=== PATIENT | male | born 1950 | race African-American/Black ===

== ENCOUNTER 2020-01-31 14:48 | Inpatient (IN) | payer MEDICARE, MEDICAID ==
[~2020-01-31] VITALS: Ht 195.6 cm; Wt 79.8 kg
[2020-01-31 16:50] LABS: CHLORIDE 111 mEq/L (98-107)
[2020-01-31 16:59] LABS: INR 1.1; PROTHROMBIN TIME 11.4 sec (9.6-11.0)
[2020-01-31 17:00] LABS: BASOPHILS % 0.8 % (0.0-2.0); EOSINOPHILS % 2.3 % (0.0-5.0); HEMATOCRIT. 35.4 % (42.0-52.0); HEMOGLOBIN. 11.8 g/dL (14.0-18.0); LYMPHOCYTES % 17.9 % (20.0-50.0); MEAN CORPUSCULAR HEMOGLOBIN 29.7 pg (28.0-32.0); MEAN CORPUSCULAR VOLUME 89.3 fL (80.0-94.0); MEAN PLATELET VOLUME 6.9 fl (7.4-10.4); MONOCYTES % 12.8 % (2.0-8.0); NEUTROPHILS % 66.2 % (40.0-76.0); PLATELET 244 x1000/uL (130-400); RED BLOOD CELL COUNT 3.97 mill/uL (4.7-6.1); RED CELL DISTRIBUTION WIDTH 18.5 % (11.6-14.6)
[2020-01-31] MEDS ORDERED: IPRATROPIUM BROMIDE (0.02%) 0.5MG/2.5ML NEB HHN STA (18:25)
[2020-01-31] MEDS ORDERED: ALBUTEROL (0.083%) 2.5MG/3ML NEB HHN STA (18:25)
[2020-01-31] MEDS ORDERED: METHYLPREDNISOLONE SOD SUCC 125 MG/2 ML VIAL IV STA (18:25)
[2020-01-31 19:21] LABS: CLARITY URINE CLEAR (CLEAR); COLOR URINE YELLOW (YELLOW); KETONES URINE NEGATIVE (NEGATIVE); LEUKOCYTE ESTERASE URINE NEGATIVE (NEGATIVE); NITRITE URINE NEGATIVE (NEGATIVE); OCCULT BLOOD URINE NEGATIVE (NEGATIVE); PH URINE 6.5 (4.5-8.0); PROTEIN URINE NEGATIVE (NEGATIVE); SPECIFIC GRAVITY URINE 1.018 (1.005-1.030); UROBILINOGEN URINE 0.2 E.U./dL (0.2-1.0)
[2020-01-31] MEDS ORDERED: ONDANSETRON HCL 4MG/2ML INJ IV PRN (21:00)
[2020-01-31] MEDS ORDERED: ZOLPIDEM TARTRATE 5MG TABLET PO PRN (21:00)
[2020-01-31] MEDS ORDERED: IPRATROPIUM/ALBUTEROL 0.5-3(2.5)MG/3ML NEB HHN PRN (21:00)
[2020-01-31] MEDS ORDERED: HYDRALAZINE 20MG/ML VIAL IV PRN (21:00)
[2020-01-31] MEDS ORDERED: MAGNESIUM/ALUMINUM HYDROXIDE/SIMETHICONE 30ML UDC PO PRN (21:00)
[2020-01-31] MEDS ORDERED: CLONIDINE 0.1MG TABLET PO PRN (21:00)
[2020-01-31] MEDS ORDERED: GUAIFENESIN 200MG/10ML SUGAR FREE UDC PO PRN (21:00)
[2020-01-31] MEDS ORDERED: ACETAMINOPHEN 325MG TABLET PO PRN ×2 (21:00)
[2020-01-31] MEDS ORDERED: DIPHENHYDRAMINE 50MG/ML VIAL IV PRN (21:00)
[2020-01-31] MEDS ORDERED: MAGNESIUM HYDROXIDE 400MG/5ML 30ML UDC PO PRN (21:15)
[2020-01-31] MEDS ORDERED: HYDROCODONE/ACETAMINOPHEN 5/325MG TABLET PO PRN (21:15)
[2020-02-01] VITALS (16 sets, daily range): BP systolic 122–179; BP diastolic 72–94
[2020-02-01] MEDS: METHYLPREDNISOLONE SOD SUCC 40 MG/ML VIAL IV SCH ×2 (05:29→14:38)
[2020-02-01] MEDS: SODIUM CHLORIDE 0.9% INJ 3ML FLUSH IVF SCH ×3 (05:29→22:00)
[2020-02-01] MEDS: ENOXAPARIN 40MG/0.4ML SYR SUBCUT SCH (09:18)
[2020-02-01] MEDS: IPRATROPIUM/ALBUTEROL 0.5-3(2.5)MG/3ML NEB HHN SCH ×3 (09:20→22:20)
[2020-02-01] MEDS ORDERED: LOSA50TA41 PO (12:57)
[2020-02-01] MEDS ORDERED: ACET12.53 PO (12:57)
[2020-02-01] MEDS ORDERED: ASPI-1497 PO (12:57)
[2020-02-01] MEDS ORDERED: CHOL40002 PO (12:57)
[2020-02-01] MEDS: LOSARTAN POTASSIUM 50 MG TABLET PO SCH (18:24)
[2020-02-01] MEDS: PANTOT AC/MIN OIL/PET HY-PHL OINT (AQUAPHOR) TOP SCH (18:25)
[2020-02-02] VITALS (12 sets, daily range): BP systolic 118–152; BP diastolic 72–90
[2020-02-02] MEDS: SODIUM CHLORIDE 0.9% INJ 3ML FLUSH IVF SCH (05:58)
[2020-02-02] MEDS: ENOXAPARIN 40MG/0.4ML SYR SUBCUT SCH (09:00)
[2020-02-02] MEDS: LOSARTAN POTASSIUM 50 MG TABLET PO SCH (09:00)
[2020-02-02] MEDS ORDERED: CHOLECALCIFEROL (D3) 1000 UNIT TABLET PO SCH (09:00)
[2020-02-02] MEDS: PANTOT AC/MIN OIL/PET HY-PHL OINT (AQUAPHOR) TOP SCH (09:04)
[2020-02-02] MEDS: IPRATROPIUM/ALBUTEROL 0.5-3(2.5)MG/3ML NEB HHN SCH ×2 (09:11→16:08)
== END 2020-02-02 19:32 | disposition home or self-care (01) | DRG 140 ==
LOC: ER 14:48 → EDBEDREQTM 19:03 → EDBEDREQ 19:03 → 5EST 20:18 → EDBEDREQTM 20:25 → EDBEDREQ 20:25 → ENRESERV 22:28
PROVIDERS: ADMIT Internal Medicine; ATTEND Internal Medicine
DX: J44.1 Chronic obstructive pulmonary disease with (acute) exacerbation (principal); J96.90 Respiratory failure, unspecified, unspecified whether with hypoxia or hypercapnia; C61 Malignant neoplasm of prostate; J98.11 Atelectasis; I87.2 Venous insufficiency (chronic) (peripheral); L30.9 Dermatitis, unspecified; Z60.2 Problems related to living alone; I10 Essential (primary) hypertension; B19.20 Unspecified viral hepatitis C without hepatic coma; Z72.0 Tobacco use; Z85.46 Personal history of malignant neoplasm of prostate; Z79.899 Other long term (current) drug therapy
CPT/HCPCS: 36415; 71045; 73562; 80053; 81003; 83880; 84484; 85025; 93005; 93306; 93970; 97110; 97162; 99285; J1650; J2920; J2930

== ENCOUNTER 2020-04-22 18:55 | Emergency (ER) | payer MEDICARE, MEDICAID ==
[~2020-04-22] VITALS: Ht 195.6 cm; Wt 80.0 kg
[~2020-04-22 18:55] MED LIST: ACET12.53 PO; ASPI-1497 PO; CHOL40002 PO; LOSA50TA41 PO
[2020-04-22 19:11] VITALS: BP 111/64
[2020-04-23] MEDS ORDERED: CEFTRIAXONE SODIUM 1 G/VIAL IM ONE (02:00)
[2020-04-23] MEDS ORDERED: LIDOCAINE HCL 1% 20ML VIAL (Pyxis) INJ INFIL ONE (02:00)
== END 2020-04-23 02:39 | disposition home or self-care (01) ==
LOC: ER 18:55
DX: L03.116 Cellulitis of left lower limb (principal); J44.9 Chronic obstructive pulmonary disease, unspecified; Z98.890 Other specified postprocedural states; Z86.19 Personal history of other infectious and parasitic diseases; Z85.46 Personal history of malignant neoplasm of prostate
CPT/HCPCS: 93970; 96372; 99284; J0696; J3490

== ENCOUNTER 2020-05-12 19:57 | Inpatient (IN) | payer MEDICARE, MEDICAID ==
[~2020-05-12] VITALS: Ht 195.6 cm; Wt 75.4 kg
[2020-05-12 21:52] LABS: HEMATOCRIT. 31.6 % (42.0-52.0); HEMOGLOBIN. 10.5 g/dL (14.0-18.0); MEAN CORPUSCULAR HEMOGLOBIN 29.4 pg (28.0-32.0); MEAN CORPUSCULAR VOLUME 88.3 fL (80.0-94.0); MEAN PLATELET VOLUME 6.9 fl (7.4-10.4); PLATELET 313 x1000/uL (130-400); RED BLOOD CELL COUNT 3.58 mill/uL (4.7-6.1); RED CELL DISTRIBUTION WIDTH 18.5 % (11.6-14.6)
[2020-05-12 21:56] LABS: CHLORIDE 113 mEq/L (98-107)
[2020-05-12 21:58] LABS: INR 1.2; PROTHROMBIN TIME 12.2 sec (9.6-11.0)
[2020-05-12 22:12] LABS: PLATELET ESTIMATE NORMAL
[2020-05-12] MEDS ORDERED: ASPIRIN 81MG TABLET PO ONE (22:45)
[2020-05-12] MEDS ORDERED: ENOXAPARIN 80MG/0.8ML SYR SUBCUT ONE (23:00)
[2020-05-13] MEDS ORDERED: DOCUSATE SODIUM 100MG CAPSULE PO PRN (00:15)
[2020-05-13] MEDS ORDERED: ONDANSETRON HCL 4MG/2ML INJ IV PRN (00:15)
[2020-05-13] MEDS ORDERED: HYDRALAZINE 20MG/ML VIAL IV PRN (00:15)
[2020-05-13] MEDS ORDERED: IPRATROPIUM/ALBUTEROL 0.5-3(2.5)MG/3ML NEB HHN PRN (00:15)
[2020-05-13] MEDS ORDERED: LORAZEPAM 2MG/ML CPJ IV PRN (00:15)
[2020-05-13] MEDS ORDERED: DIPHENHYDRAMINE 50MG/ML VIAL IV PRN (00:15)
[2020-05-13] MEDS ORDERED: GUAIFENESIN 200MG/10ML SUGAR FREE UDC PO PRN (00:15)
[2020-05-13] MEDS ORDERED: MAGNESIUM/ALUMINUM HYDROXIDE/SIMETHICONE 30ML UDC PO PRN (00:15)
[2020-05-13] MEDS ORDERED: ACETAMINOPHEN 325MG TABLET PO PRN (00:15)
[2020-05-13] MEDS ORDERED: CLONIDINE 0.1MG TABLET PO PRN (00:15)
[2020-05-13 00:30] VITALS: BP 133/67
[2020-05-13] MEDS ORDERED: CEFTRIAXONE 1,000 MG in DEXTROSE 5% WATER 50 ML IV SCH (02:00)
[2020-05-13 02:09] LABS: CLARITY URINE CLEAR (CLEAR); COLOR URINE YELLOW (YELLOW); KETONES URINE NEGATIVE (NEGATIVE); LEUKOCYTE ESTERASE URINE 1+ (NEGATIVE); NITRITE URINE NEGATIVE (NEGATIVE); OCCULT BLOOD URINE NEGATIVE (NEGATIVE); PH URINE 8.5 (4.5-8.0); PROTEIN URINE 2+ (NEGATIVE); SPECIFIC GRAVITY URINE 1.018 (1.005-1.030)
[2020-05-13] MEDS ORDERED: AZITHROMYCIN 500 MG in DEXT 5% WATER 250 ML IV SCH (03:00)
[2020-05-13 04:00] VITALS: BP 126/63
[2020-05-13] MEDS: SODIUM CHLORIDE 0.9% INJ 3ML FLUSH IVF SCH ×3 (06:05→21:46)
[2020-05-13 08:00] VITALS: BP 130/66
[2020-05-13] MEDS: ASPIRIN 81MG TABLET PO SCH (08:28)
[2020-05-13] MEDS: ENOXAPARIN 40MG/0.4ML SYR SUBCUT SCH (08:29)
[2020-05-13] MEDS ORDERED: ASPIRIN 81MG EC TABLET PO SCH (09:00)
[2020-05-13 12:00] VITALS: BP 126/68
[2020-05-13] MEDS ORDERED: NON FORMULARY PATIENT HOME MED XX SCH (13:45)
[2020-05-13] MEDS ORDERED: ALBUTEROL 6.7GM HFA INHALER ORI SCH (14:00)
[2020-05-13 16:00] VITALS: BP 129/70
[2020-05-13 20:00] VITALS: BP 91/47
[2020-05-13] MEDS: GUAIFENESIN 600MG ER TABLET PO SCH (20:26)
[2020-05-13 20:35] LABS: CREATINE KINASE MB FRACTION 126.5 ng/mL (0.5-3.6); T4 FREE 0.93 ng/dL (0.76-1.46)
[2020-05-13] MEDS: HYDROCODONE/ACETAMINOPHEN 10/325MG TABLET PO PRN (21:49)
[2020-05-13 23:44] LABS: CREATINE KINASE MB FRACTION 128.8 ng/mL (0.5-3.6)
[2020-05-14] VITALS: BP 132/69
[2020-05-14] MEDS: CEFTRIAXONE 1,000 MG in DEXTROSE 5% WATER 50 ML IV SCH (00:55)
[2020-05-14] MEDS: AZITHROMYCIN 500 MG in DEXT 5% WATER 250 ML IV SCH (00:55)
[2020-05-14 04:00] VITALS: BP 110/68
[2020-05-14] MEDS: SODIUM CHLORIDE 0.9% INJ 3ML FLUSH IVF SCH ×3 (04:34→21:00)
[2020-05-14 07:03] LABS: CHLORIDE 114 mEq/L (98-107)
[2020-05-14 07:13] LABS: CREATINE KINASE MB FRACTION 97.7 ng/mL (0.5-3.6)
[2020-05-14 07:16] LABS: BASOPHILS % 0.6 % (0.0-2.0); HEMATOCRIT. 31.7 % (42.0-52.0); HEMOGLOBIN. 10.5 g/dL (14.0-18.0); LYMPHOCYTES % 8.7 % (20.0-50.0); MEAN CORPUSCULAR HEMOGLOBIN 29.1 pg (28.0-32.0); MEAN PLATELET VOLUME 7.1 fl (7.4-10.4); MONOCYTES % 6.9 % (2.0-8.0); NEUTROPHILS % 77.8 % (40.0-76.0); PLATELET 315 x1000/uL (130-400); RED CELL DISTRIBUTION WIDTH 19.3 % (11.6-14.6)
[2020-05-14 07:25] LABS: CREATINE KINASE 4500 IU/L (39-308)
[2020-05-14 08:00] VITALS: BP 118/62
[2020-05-14] MEDS: GUAIFENESIN 600MG ER TABLET PO SCH ×2 (09:49→20:55)
[2020-05-14] MEDS: ASPIRIN 81MG TABLET PO SCH (09:49)
[2020-05-14] MEDS: ENOXAPARIN 40MG/0.4ML SYR SUBCUT SCH (09:50)
[2020-05-14] MEDS: HYDROCODONE/ACETAMINOPHEN 10/325MG TABLET PO PRN ×3 (10:29→22:47)
[2020-05-14 12:00] VITALS: BP 107/57
[2020-05-14] MEDS: NYSTATIN POWDER 15GM TOP SCH ×2 (13:04→17:20)
[2020-05-14] MEDS: FLUTICASONE FUROATE 100 1 INH/CAP ORI SCH ×2 (13:04→17:20)
[2020-05-14 16:00] VITALS: BP 104/56
[2020-05-14 18:46] LABS: PROSTRATE SPECIFIC AG TOTAL 98.49 ng/mL (0.0-4.0)
[2020-05-14 20:00] VITALS: BP 107/55
[2020-05-15] VITALS: BP 108/66
[2020-05-15] MEDS: CEFTRIAXONE 1,000 MG in DEXTROSE 5% WATER 50 ML IV SCH (01:23)
[2020-05-15] MEDS: ALBUTEROL (0.083%) 2.5MG/3ML NEB HHN SCH ×4 (02:20→20:43)
[2020-05-15] MEDS: AZITHROMYCIN 500 MG in DEXT 5% WATER 250 ML IV SCH (02:39)
[2020-05-15 04:00] VITALS: BP 110/59
[2020-05-15] MEDS: MORPHINE SULFATE 2 MG/ML CPJ (NOT FOR IM USE) IV PRN (04:41)
[2020-05-15] MEDS: SODIUM CHLORIDE 0.9% INJ 3ML FLUSH IVF SCH ×3 (06:45→21:31)
[2020-05-15] MEDS: HYDROCODONE/ACETAMINOPHEN 10/325MG TABLET PO PRN ×3 (06:45→21:47)
[2020-05-15 07:57] LABS: BASOPHILS % 0.7 % (0.0-2.0); HEMATOCRIT. 29.6 % (42.0-52.0); HEMOGLOBIN. 9.7 g/dL (14.0-18.0); LYMPHOCYTES % 7.4 % (20.0-50.0); MEAN PLATELET VOLUME 7.3 fl (7.4-10.4); NEUTROPHILS % 79.9 % (40.0-76.0); PLATELET 278 x1000/uL (130-400); RED BLOOD CELL COUNT 3.36 mill/uL (4.7-6.1); RED CELL DISTRIBUTION WIDTH 18.9 % (11.6-14.6)
[2020-05-15 08:00] VITALS: BP 136/58
[2020-05-15 08:39] LABS: CHLORIDE 111 mEq/L (98-107)
[2020-05-15] MEDS: GUAIFENESIN 600MG ER TABLET PO SCH ×2 (09:58→21:30)
[2020-05-15] MEDS: NYSTATIN POWDER 15GM TOP SCH ×3 (09:59→17:00)
[2020-05-15] MEDS: ASPIRIN 81MG TABLET PO SCH (09:59)
[2020-05-15] MEDS: ENOXAPARIN 40MG/0.4ML SYR SUBCUT SCH (09:59)
[2020-05-15] MEDS: FLUTICASONE FUROATE 100 1 INH/CAP ORI SCH ×2 (10:00→18:08)
[2020-05-15] MEDS: SODIUM CHLORIDE 0.45% 1,000 ML IV SCH (11:46)
[2020-05-15 12:00] VITALS: BP 115/61
[2020-05-15 16:00] VITALS: BP 119/88
[2020-05-15 20:00] VITALS: BP 104/55
[2020-05-15] MEDS: AZITHROMYCIN 500 MG TABLET PO SCH (21:31)
[2020-05-16] VITALS: BP 118/64
[2020-05-16] MEDS: CEFTRIAXONE 1,000 MG in DEXTROSE 5% WATER 50 ML IV SCH (01:00)
[2020-05-16 04:00] VITALS: BP 139/70
[2020-05-16] MEDS: HYDROCODONE/ACETAMINOPHEN 10/325MG TABLET PO PRN ×3 (05:52→21:46)
[2020-05-16] MEDS: SODIUM CHLORIDE 0.9% INJ 3ML FLUSH IVF SCH ×3 (05:54→21:47)
[2020-05-16] MEDS: SODIUM CHLORIDE 0.45% 1,000 ML IV SCH (06:17)
[2020-05-16 07:02] LABS: CHLORIDE 109 mEq/L (98-107)
[2020-05-16 07:04] LABS: HEMATOCRIT. 27.3 % (42.0-52.0); HEMOGLOBIN. 9.1 g/dL (14.0-18.0); MEAN CORPUSCULAR HEMOGLOBIN 29.2 pg (28.0-32.0); MEAN PLATELET VOLUME 6.8 fl (7.4-10.4); PLATELET 279 x1000/uL (130-400); RED CELL DISTRIBUTION WIDTH 18.4 % (11.6-14.6)
[2020-05-16 07:12] LABS: CREATINE KINASE MB FRACTION 95.3 ng/mL (0.5-3.6)
[2020-05-16 08:00] VITALS: BP 125/54
[2020-05-16] MEDS: NYSTATIN POWDER 15GM TOP SCH ×3 (08:37→17:12)
[2020-05-16] MEDS: ENOXAPARIN 40MG/0.4ML SYR SUBCUT SCH (08:37)
[2020-05-16] MEDS: ASPIRIN 81MG TABLET PO SCH (08:37)
[2020-05-16] MEDS: GUAIFENESIN 600MG ER TABLET PO SCH ×2 (08:37→20:10)
[2020-05-16] MEDS: MORPHINE SULFATE 2 MG/ML CPJ (NOT FOR IM USE) IV PRN ×2 (08:38→17:15)
[2020-05-16] MEDS: FLUTICASONE FUROATE 100 1 INH/CAP ORI SCH ×2 (08:38→17:12)
[2020-05-16] MEDS: ALBUTEROL (0.083%) 2.5MG/3ML NEB HHN SCH ×3 (09:11→19:53)
[2020-05-16 10:13] LABS: PLATELET ESTIMATE NORMAL
[2020-05-16 11:51] VITALS: BP 121/56
[2020-05-16 16:00] VITALS: BP 109/59
[2020-05-16 20:00] VITALS: BP 128/53
[2020-05-16] MEDS: AZITHROMYCIN 500 MG TABLET PO SCH (20:10)
[2020-05-17] VITALS: BP 128/57
[2020-05-17] MEDS: ALBUTEROL (0.083%) 2.5MG/3ML NEB HHN SCH ×4 (00:30→21:38)
[2020-05-17] MEDS: CEFTRIAXONE 1,000 MG in DEXTROSE 5% WATER 50 ML IV SCH (01:36)
[2020-05-17] MEDS: MORPHINE SULFATE 2 MG/ML CPJ (NOT FOR IM USE) IV PRN ×4 (01:36→21:58)
[2020-05-17 04:00] VITALS: BP 121/59
[2020-05-17] MEDS: SODIUM CHLORIDE 0.45% 1,000 ML IV SCH (04:10)
[2020-05-17] MEDS: HYDROCODONE/ACETAMINOPHEN 10/325MG TABLET PO PRN ×2 (04:55→14:06)
[2020-05-17] MEDS: SODIUM CHLORIDE 0.9% INJ 3ML FLUSH IVF SCH ×3 (06:07→21:57)
[2020-05-17 08:00] VITALS: BP 103/52
[2020-05-17] MEDS: GUAIFENESIN 600MG ER TABLET PO SCH ×2 (09:12→21:57)
[2020-05-17] MEDS: ASPIRIN 81MG TABLET PO SCH (09:12)
[2020-05-17] MEDS: ENOXAPARIN 40MG/0.4ML SYR SUBCUT SCH (09:13)
[2020-05-17] MEDS: FLUTICASONE FUROATE 100 1 INH/CAP ORI SCH ×2 (09:13→17:39)
[2020-05-17] MEDS: NYSTATIN POWDER 15GM TOP SCH ×3 (09:13→17:39)
[2020-05-17 12:00] VITALS: BP 106/56
[2020-05-17 16:00] VITALS: BP 124/58
[2020-05-17 20:00] VITALS: BP 107/62
[2020-05-17] MEDS: AZITHROMYCIN 500 MG TABLET PO SCH (21:57)
[2020-05-18] VITALS: BP 125/62
[2020-05-18] MEDS: HYDROCODONE/ACETAMINOPHEN 10/325MG TABLET PO PRN (00:12)
[2020-05-18] MEDS: SODIUM CHLORIDE 0.45% 1,000 ML IV SCH (00:15)
[2020-05-18] MEDS: ALBUTEROL (0.083%) 2.5MG/3ML NEB HHN SCH ×3 (02:27→13:44)
[2020-05-18 04:00] VITALS: BP 114/62
[2020-05-18] MEDS: SODIUM CHLORIDE 0.9% INJ 3ML FLUSH IVF SCH ×2 (06:00→13:17)
[2020-05-18 08:00] VITALS: BP 118/74
[2020-05-18] MEDS: ASPIRIN 81MG TABLET PO SCH (08:16)
[2020-05-18] MEDS: GUAIFENESIN 600MG ER TABLET PO SCH (08:16)
[2020-05-18] MEDS: FLUTICASONE FUROATE 100 1 INH/CAP ORI SCH (08:16)
[2020-05-18] MEDS: NYSTATIN POWDER 15GM TOP SCH ×2 (08:16→13:17)
[2020-05-18] MEDS: ENOXAPARIN 40MG/0.4ML SYR SUBCUT SCH (08:16)
[2020-05-18 12:00] VITALS: BP 123/61
[2020-05-18 14:32] VITALS: BP 112/65
== END 2020-05-18 15:30 | disposition home health service (06) | DRG 720 ==
LOC: ER 19:57 → EDBEDREQ 23:00 → EDBEDREQTM 23:00 → 7WST 23:15 → EDBEDREQ 23:37 → ENRESERV 23:53 → 5WST 05-13 21:35
PROVIDERS: ADMIT Internal Medicine; ATTEND Internal Medicine
DX: A41.9 Sepsis, unspecified organism (principal); J96.00 Acute respiratory failure, unspecified whether with hypoxia or hypercapnia; J44.0 Chronic obstructive pulmonary disease with (acute) lower respiratory infection; N17.0 Acute kidney failure with tubular necrosis; D64.9 Anemia, unspecified; E46 Unspecified protein-calorie malnutrition; Z03.818 Encounter for observation for suspected exposure to other biological agents ruled out; J44.1 Chronic obstructive pulmonary disease with (acute) exacerbation; F17.210 Nicotine dependence, cigarettes, uncomplicated; I11.0 Hypertensive heart disease with heart failure; I27.20 Pulmonary hypertension, unspecified; I96 Gangrene, not elsewhere classified; M62.82 Rhabdomyolysis; T23.002A Burn of unspecified degree of left hand, unspecified site, initial encounter; I21.4 Non-ST elevation (NSTEMI) myocardial infarction; R32 Unspecified urinary incontinence; I50.32 Chronic diastolic (congestive) heart failure; I87.2 Venous insufficiency (chronic) (peripheral); R62.7 Adult failure to thrive; X08.8XXA Exposure to other specified smoke, fire and flames, initial encounter; Y93.89 Activity, other specified; Y92.89 Other specified places as the place of occurrence of the external cause; Y99.8 Other external cause status; Z79.2 Long term (current) use of antibiotics; Z79.82 Long term (current) use of aspirin; Z79.899 Other long term (current) drug therapy; Z85.46 Personal history of malignant neoplasm of prostate; Z91.19 Patient's noncompliance with other medical treatment and regimen; Z86.19 Personal history of other infectious and parasitic diseases; I69.354 Hemiplegia and hemiparesis following cerebral infarction affecting left non-dominant side; Z68.1 Body mass index [BMI] 19.9 or less, adult; Z74.01 Bed confinement status; J69.0 Pneumonitis due to inhalation of food and vomit
CPT/HCPCS: 36415; 70551; 71045; 73120; 80048; 80053; 80061; 81003; 82040; 82550; 82553; 82607; 83036; 83880; 84134; 84153; 84439; 84443; 84484; 85025; 85379; 87635; 92610; 93005; 93306; 93880; 93922; 93970; 94640; 97162; 97535; 99291; J0456; J0696; J1650; J2270; J7060; G0103

== ENCOUNTER 2020-05-25 13:55 | Inpatient (IN) | payer MEDICARE, MEDICAID ==
[~2020-05-25] VITALS: Ht 195.6 cm; Wt 84.6 kg
[2020-05-25] MEDS ORDERED: SODIUM CHLORIDE 0.9% 1,000 ML IV ONE (15:06)
[2020-05-25] MEDS ORDERED: DEXTROSE 50% WATER 50ML SYRINGE IV ONE ×2 (16:30→19:00)
[2020-05-25 16:45] LABS: HEMATOCRIT. 32.2 % (42.0-52.0); HEMOGLOBIN. 10.5 g/dL (14.0-18.0); MEAN CORPUSCULAR HEMOGLOBIN 28.6 pg (28.0-32.0); MEAN PLATELET VOLUME 6.8 fl (7.4-10.4); PLATELET 351 x1000/uL (130-400); RED BLOOD CELL COUNT 3.67 mill/uL (4.7-6.1); RED CELL DISTRIBUTION WIDTH 18.2 % (11.6-14.6)
[2020-05-25 16:52] LABS: CHLORIDE 109 mEq/L (98-107)
[2020-05-25 16:56] LABS: ETHANOL BLOOD < 10 mg/dL
[2020-05-25 17:05] LABS: PLATELET ESTIMATE NORMAL
[2020-05-25] MEDS ORDERED: DEXT 10% WATER 1,000 ML IV ONE (18:15)
[2020-05-25 20:10] VITALS: BP 133/73
[2020-05-25] MEDS ORDERED: MAGNESIUM/ALUMINUM HYDROXIDE/SIMETHICONE 30ML UDC PO PRN (21:00)
[2020-05-25] MEDS ORDERED: CEFTRIAXONE 1 G PREMIX 50 ML IV SCH (21:00)
[2020-05-25] MEDS ORDERED: DIPHENHYDRAMINE 50MG/ML VIAL IV PRN (21:00)
[2020-05-25] MEDS ORDERED: GUAIFENESIN 200MG/10ML SUGAR FREE UDC PO PRN (21:00)
[2020-05-25] MEDS ORDERED: ALBUTEROL 6.7GM HFA INHALER ORI PRN (21:00)
[2020-05-25] MEDS ORDERED: CLONIDINE 0.1MG TABLET PO PRN (21:00)
[2020-05-25] MEDS ORDERED: ONDANSETRON HCL 4MG/2ML INJ IV PRN (21:00)
[2020-05-25] MEDS ORDERED: ACETAMINOPHEN 325MG TABLET PO PRN (21:00)
[2020-05-25] MEDS: DEXT 5%/0.45% NACL 1000ML 1,000 ML IV SCH (21:54)
[2020-05-25] MEDS: ENOXAPARIN 40MG/0.4ML SYR SUBCUT SCH (21:55)
[2020-05-25] MEDS: BLOOD SUGAR DIAGNOSTIC STRIP TEST SCH (21:55)
[2020-05-25] MEDS: CEFTRIAXONE 1,000 MG in DEXTROSE 5% WATER 50 ML IV SCH (22:30)
[2020-05-26 00:01] LABS: CLARITY URINE CLEAR (CLEAR); COLOR URINE YELLOW (YELLOW); KETONES URINE NEGATIVE (NEGATIVE); LEUKOCYTE ESTERASE URINE NEGATIVE (NEGATIVE); NITRITE URINE NEGATIVE (NEGATIVE); OCCULT BLOOD URINE NEGATIVE (NEGATIVE); PROTEIN URINE NEGATIVE (NEGATIVE); SPECIFIC GRAVITY URINE 1.019 (1.005-1.030); UROBILINOGEN URINE 0.2 E.U./dL (0.2-1.0)
[2020-05-26 00:29] LABS: *AMPHETAMINES SCREEN URINE NEGATIVE (NEGATIVE); *BARBITURATES SCREEN URINE NEGATIVE (NEGATIVE); *BENZODIAZEPINES SCREEN URINE NEGATIVE (NEGATIVE); *COCAINE SCREEN URINE PRESUMTIVE POSITIVE (NEGATIVE); METHADONE URINE SCREEN NEGATIVE (NEGATIVE); OPIATES URINE SCREEN PRESUMTIVE POSITIVE (NEGATIVE)
[2020-05-26 00:30] LABS: CANNABINOID URINE SCREEN NEGATIVE (NEGATIVE); PHENCYCLIDINE URINE SCREEN NEGATIVE (NEGATIVE)
[2020-05-26 01:04] VITALS: BP 141/65
[2020-05-26 04:00] VITALS: BP 132/61
[2020-05-26] MEDS: DEXT 5%/0.45% NACL 1000ML 1,000 ML IV SCH ×2 (06:34→18:33)
[2020-05-26] MEDS: BLOOD SUGAR DIAGNOSTIC STRIP TEST SCH ×4 (06:40→21:00)
[2020-05-26 08:00] VITALS: BP 130/65
[2020-05-26 11:00] VITALS: BP 186/90
[2020-05-26 11:06] LABS: HEMATOCRIT. 31.3 % (42.0-52.0); HEMOGLOBIN. 10.5 g/dL (14.0-18.0); MEAN CORPUSCULAR HEMOGLOBIN 29.3 pg (28.0-32.0); MEAN CORPUSCULAR VOLUME 87.4 fL (80.0-94.0); MEAN PLATELET VOLUME 6.9 fl (7.4-10.4); PLATELET 350 x1000/uL (130-400); RED BLOOD CELL COUNT 3.58 mill/uL (4.7-6.1)
[2020-05-26 11:35] LABS: CHLORIDE 107 mEq/L (98-107)
[2020-05-26 11:44] LABS: PHOSPHORUS 4.3 mg/dL (2.5-4.9)
[2020-05-26 14:27] LABS: PLATELET ESTIMATE NORMAL
[2020-05-26 16:00] VITALS: BP 118/79
[2020-05-26] MEDS ORDERED: ALBUTEROL (0.083%) 2.5MG/3ML NEB HHN PRN (22:00)
[2020-05-26] MEDS: DEXTROSE 50% WATER 50ML SYRINGE IV PRN (22:36)
[2020-05-26] MEDS: ENOXAPARIN 40MG/0.4ML SYR SUBCUT SCH (22:42)
[2020-05-26] MEDS: CEFTRIAXONE 1,000 MG in DEXTROSE 5% WATER 50 ML IV SCH (22:42)
[2020-05-27 00:10] VITALS: BP 119/59
[2020-05-27] MEDS: DEXT 5%/0.45% NACL 1000ML 1,000 ML IV SCH ×2 (02:31→14:30)
[2020-05-27 04:00] VITALS: BP 97/61
[2020-05-27] MEDS: ACETAMINOPHEN 325MG TABLET PO PRN (06:49)
[2020-05-27] MEDS: BLOOD SUGAR DIAGNOSTIC STRIP TEST SCH ×4 (07:46→20:33)
[2020-05-27 08:00] VITALS: BP 95/51
[2020-05-27 12:00] VITALS: BP 109/50
[2020-05-27] MEDS: DEXTROSE 50% WATER 50ML SYRINGE IV PRN ×2 (13:12→18:00)
[2020-05-27] MEDS: NYSTATIN POWDER 15GM TOP SCH ×2 (14:29→20:33)
[2020-05-27 16:00] VITALS: BP 104/60
[2020-05-27] MEDS: HYDROCODONE/ACETAMINOPHEN 5/325MG TABLET PO PRN ×2 (17:22→22:47)
[2020-05-27] MEDS: DEXT 10% WATER 1,000 ML IV SCH (17:32)
[2020-05-27] MEDS ORDERED: IPRATROPIUM/ALBUTEROL 0.5-3(2.5)MG/3ML NEB HHN PRN (18:45)
[2020-05-27 20:23] VITALS: BP 102/57
[2020-05-27] MEDS: ENOXAPARIN 40MG/0.4ML SYR SUBCUT SCH (20:32)
[2020-05-27] MEDS: CEFTRIAXONE 1,000 MG in DEXTROSE 5% WATER 50 ML IV SCH (20:32)
[2020-05-27] MEDS: ZOLPIDEM TARTRATE 5MG TABLET PO PRN (22:48)
[2020-05-27] MEDS: IPRATROPIUM/ALBUTEROL 0.5-3(2.5)MG/3ML NEB HHN SCH (23:13)
[2020-05-28] VITALS (7 sets, daily range): BP systolic 95–115; BP diastolic 50–62
[2020-05-28] MEDS: DEXT 10% WATER 1,000 ML IV SCH ×2 (03:41→15:59)
[2020-05-28] MEDS: BLOOD SUGAR DIAGNOSTIC STRIP TEST SCH ×4 (06:47→21:12)
[2020-05-28 07:09] LABS: HEMATOCRIT. 30.7 % (42.0-52.0); HEMOGLOBIN. 10.1 g/dL (14.0-18.0); MEAN CORPUSCULAR HEMOGLOBIN 28.8 pg (28.0-32.0); MEAN CORPUSCULAR VOLUME 87.8 fL (80.0-94.0); PLATELET 214 x1000/uL (130-400); RED BLOOD CELL COUNT 3.49 mill/uL (4.7-6.1); RED CELL DISTRIBUTION WIDTH 17.9 % (11.6-14.6)
[2020-05-28] MEDS: IPRATROPIUM/ALBUTEROL 0.5-3(2.5)MG/3ML NEB HHN SCH ×3 (07:38→21:30)
[2020-05-28 07:51] LABS: CHLORIDE 108 mEq/L (98-107)
[2020-05-28 08:13] LABS: PHOSPHORUS 4.5 mg/dL (2.5-4.9)
[2020-05-28] MEDS: NYSTATIN POWDER 15GM TOP SCH ×2 (09:10→20:58)
[2020-05-28 10:58] LABS: PLATELET ESTIMATE NORMAL
[2020-05-28] MEDS ORDERED: IOHEXOL-300 100 ML BOTTLE ONE (15:18)
[2020-05-28] MEDS: HYDROCODONE/ACETAMINOPHEN 5/325MG TABLET PO PRN (17:49)
[2020-05-28] MEDS: DEXTROSE 50% WATER 50ML SYRINGE IV PRN (18:03)
[2020-05-28] MEDS: ACETAMINOPHEN 325MG TABLET PO PRN (19:58)
[2020-05-28] MEDS: ENOXAPARIN 40MG/0.4ML SYR SUBCUT SCH (20:58)
[2020-05-28] MEDS: CEFTRIAXONE 1,000 MG in DEXTROSE 5% WATER 50 ML IV SCH (20:58)
[2020-05-29] VITALS (8 sets, daily range): BP systolic 92–110; BP diastolic 50–99
[2020-05-29] MEDS: DEXT 10% WATER 1,000 ML IV SCH ×3 (03:12→22:03)
[2020-05-29] MEDS: BLOOD SUGAR DIAGNOSTIC STRIP TEST SCH ×4 (06:50→21:00)
[2020-05-29 08:10] LABS: HEMATOCRIT. 29.8 % (42.0-52.0); HEMOGLOBIN. 9.9 g/dL (14.0-18.0); MEAN CORPUSCULAR VOLUME 87.3 fL (80.0-94.0); MEAN PLATELET VOLUME 7.2 fl (7.4-10.4); PLATELET 182 x1000/uL (130-400); RED BLOOD CELL COUNT 3.41 mill/uL (4.7-6.1); RED CELL DISTRIBUTION WIDTH 17.8 % (11.6-14.6)
[2020-05-29] MEDS: IPRATROPIUM/ALBUTEROL 0.5-3(2.5)MG/3ML NEB HHN SCH ×3 (08:38→21:00)
[2020-05-29] MEDS: HYDROCODONE/ACETAMINOPHEN 5/325MG TABLET PO PRN ×3 (08:41→22:23)
[2020-05-29 08:43] LABS: CHLORIDE 107 mEq/L (98-107)
[2020-05-29 08:56] LABS: PHOSPHORUS 3.9 mg/dL (2.5-4.9)
[2020-05-29 09:07] LABS: CREATINE KINASE 1457 IU/L (39-308)
[2020-05-29] MEDS: NYSTATIN POWDER 15GM TOP SCH ×2 (12:28→21:50)
[2020-05-29] MEDS ORDERED: FUROSEMIDE 100MG/10ML VIAL IVP NR (14:30)
[2020-05-29] MEDS: MEGESTROL ACETATE 400 MG/10 ML UDC PO SCH (17:02)
[2020-05-29] MEDS: CEFTRIAXONE 1,000 MG in DEXTROSE 5% WATER 50 ML IV SCH (21:50)
[2020-05-29] MEDS: ENOXAPARIN 40MG/0.4ML SYR SUBCUT SCH (22:07)
[2020-05-30] MEDS: IPRATROPIUM/ALBUTEROL 0.5-3(2.5)MG/3ML NEB HHN SCH ×5 (00:10→20:08)
[2020-05-30 04:00] VITALS: BP 106/55
[2020-05-30] MEDS: DEXT 10% WATER 1,000 ML IV SCH (06:12)
[2020-05-30] MEDS: BLOOD SUGAR DIAGNOSTIC STRIP TEST SCH ×4 (06:20→20:24)
[2020-05-30 07:01] LABS: CHLORIDE 103 mEq/L (98-107)
[2020-05-30 07:05] LABS: HEMATOCRIT. 26.2 % (42.0-52.0); HEMOGLOBIN. 8.9 g/dL (14.0-18.0); MEAN CORPUSCULAR HEMOGLOBIN 29.2 pg (28.0-32.0); MEAN CORPUSCULAR VOLUME 85.8 fL (80.0-94.0); PLATELET 178 x1000/uL (130-400); RED BLOOD CELL COUNT 3.05 mill/uL (4.7-6.1); RED CELL DISTRIBUTION WIDTH 17.3 % (11.6-14.6)
[2020-05-30 07:06] LABS: PHOSPHORUS 4.3 mg/dL (2.5-4.9)
[2020-05-30 07:21] LABS: CREATINE KINASE 1486 IU/L (39-308)
[2020-05-30 08:33] LABS: PLATELET ESTIMATE NORMAL
[2020-05-30 08:49] VITALS: BP 108/50
[2020-05-30] MEDS: NYSTATIN POWDER 15GM TOP SCH ×2 (10:21→20:23)
[2020-05-30] MEDS: MEGESTROL ACETATE 400 MG/10 ML UDC PO SCH ×2 (10:21→17:32)
[2020-05-30 10:43] LABS: PLATELET ESTIMATE NORMAL
[2020-05-30] MEDS: SODIUM CHLORIDE 23.4% 154 MEQ in DEXT 10% WATER 1,000 ML IV SCH (11:10)
[2020-05-30 12:02] VITALS: BP 107/50
[2020-05-30 16:20] VITALS: BP 98/47
[2020-05-30] MEDS: ZOLPIDEM TARTRATE 5MG TABLET PO PRN (20:23)
[2020-05-30] MEDS: ENOXAPARIN 40MG/0.4ML SYR SUBCUT SCH (20:24)
[2020-05-30] MEDS: HYDROCODONE/ACETAMINOPHEN 5/325MG TABLET PO PRN (20:36)
[2020-05-30 20:46] VITALS: BP 111/63
[2020-05-31 00:47] VITALS: BP 110/51
[2020-05-31] MEDS: SODIUM CHLORIDE 23.4% 154 MEQ in DEXT 10% WATER 1,000 ML IV SCH ×2 (01:57→16:32)
[2020-05-31] MEDS: IPRATROPIUM/ALBUTEROL 0.5-3(2.5)MG/3ML NEB HHN SCH ×4 (02:03→19:48)
[2020-05-31 04:00] VITALS: BP 112/58
[2020-05-31] MEDS: DEXTROSE 50% WATER 50ML SYRINGE IV PRN ×2 (06:20→17:39)
[2020-05-31] MEDS: BLOOD SUGAR DIAGNOSTIC STRIP TEST SCH ×4 (06:33→21:00)
[2020-05-31 07:28] LABS: HEMATOCRIT. 26.9 % (42.0-52.0); HEMOGLOBIN. 9.1 g/dL (14.0-18.0); MEAN CORPUSCULAR HEMOGLOBIN 29.2 pg (28.0-32.0); MEAN CORPUSCULAR VOLUME 86.5 fL (80.0-94.0); MEAN PLATELET VOLUME 7.1 fl (7.4-10.4); PLATELET 152 x1000/uL (130-400); RED BLOOD CELL COUNT 3.11 mill/uL (4.7-6.1); RED CELL DISTRIBUTION WIDTH 17.5 % (11.6-14.6)
[2020-05-31 07:45] LABS: CHLORIDE 105 mEq/L (98-107)
[2020-05-31 07:52] LABS: PHOSPHORUS 3.6 mg/dL (2.5-4.9)
[2020-05-31 08:00] VITALS: BP 117/61
[2020-05-31] MEDS: NYSTATIN POWDER 15GM TOP SCH ×2 (09:37→21:00)
[2020-05-31] MEDS: MEGESTROL ACETATE 400 MG/10 ML UDC PO SCH ×2 (09:37→16:23)
[2020-05-31 12:00] VITALS: BP 104/52
[2020-05-31 12:03] LABS: PLATELET ESTIMATE NORMAL
[2020-05-31 16:00] VITALS: BP 99/51
[2020-05-31 20:36] VITALS: BP 99/45
[2020-05-31] MEDS: ENOXAPARIN 40MG/0.4ML SYR SUBCUT SCH (21:00)
[2020-05-31] MEDS: HYDROCODONE/ACETAMINOPHEN 5/325MG TABLET PO PRN (21:01)
[2020-06-01 00:41] VITALS: BP 115/60
[2020-06-01] MEDS: IPRATROPIUM/ALBUTEROL 0.5-3(2.5)MG/3ML NEB HHN SCH ×4 (01:25→21:20)
[2020-06-01 04:00] VITALS: BP 121/59
[2020-06-01] MEDS: SODIUM CHLORIDE 23.4% 154 MEQ in DEXT 10% WATER 1,000 ML IV SCH (05:51)
[2020-06-01] MEDS: BLOOD SUGAR DIAGNOSTIC STRIP TEST SCH ×4 (06:53→21:31)
[2020-06-01 08:00] VITALS: BP 105/51
[2020-06-01] MEDS: MEGESTROL ACETATE 400 MG/10 ML UDC PO SCH ×2 (08:20→16:30)
[2020-06-01] MEDS: NYSTATIN POWDER 15GM TOP SCH ×2 (08:20→21:31)
[2020-06-01] MEDS: DEXT 5%/0.9% NACL 1,000 ML IV SCH ×3 (08:47→21:50)
[2020-06-01 08:48] LABS: HEMATOCRIT. 30.5 % (42.0-52.0); MEAN CORPUSCULAR HEMOGLOBIN 28.9 pg (28.0-32.0); MEAN CORPUSCULAR VOLUME 87.5 fL (80.0-94.0); MEAN PLATELET VOLUME 7.3 fl (7.4-10.4); PLATELET 94 x1000/uL (130-400); RED BLOOD CELL COUNT 3.48 mill/uL (4.7-6.1); RED CELL DISTRIBUTION WIDTH 17.5 % (11.6-14.6)
[2020-06-01 12:00] VITALS: BP 95/57
[2020-06-01] MEDS: DEXTROSE 50% WATER 50ML SYRINGE IV PRN ×2 (12:07→21:43)
[2020-06-01 15:57] LABS: CHLORIDE 110 mEq/L (98-107)
[2020-06-01 16:00] VITALS: BP 109/57
[2020-06-01 16:02] LABS: PHOSPHORUS 3.9 mg/dL (2.5-4.9)
[2020-06-01 16:18] LABS: CREATINE KINASE 1338 IU/L (39-308)
[2020-06-01 17:37] LABS: PLATELET ESTIMATE DECREASED
[2020-06-01 20:00] VITALS: BP 100/51
[2020-06-01] MEDS: ENOXAPARIN 40MG/0.4ML SYR SUBCUT SCH ×2 (21:00→21:36)
[2020-06-02 00:06] VITALS: BP 101/52
[2020-06-02] MEDS: IPRATROPIUM/ALBUTEROL 0.5-3(2.5)MG/3ML NEB HHN SCH ×3 (02:20→20:05)
[2020-06-02] MEDS: DEXTROSE 50% WATER 50ML SYRINGE IV PRN ×4 (02:46→21:02)
[2020-06-02 04:00] VITALS: BP 106/55
[2020-06-02] MEDS: BLOOD SUGAR DIAGNOSTIC STRIP TEST SCH ×4 (06:33→20:49)
[2020-06-02] MEDS ORDERED: SODIUM CHLORIDE 23.4% 154 MEQ in DEXT 10% WATER 1,000 ML IV SCH (07:30)
[2020-06-02 07:31] LABS: CHLORIDE 110 mEq/L (98-107)
[2020-06-02 07:50] LABS: HEMATOCRIT. 31.9 % (42.0-52.0); HEMOGLOBIN. 10.7 g/dL (14.0-18.0); MEAN CORPUSCULAR HEMOGLOBIN 28.8 pg (28.0-32.0); MEAN CORPUSCULAR VOLUME 86.4 fL (80.0-94.0); MEAN PLATELET VOLUME 7.2 fl (7.4-10.4); PLATELET 108 x1000/uL (130-400); RED CELL DISTRIBUTION WIDTH 17.9 % (11.6-14.6)
[2020-06-02 08:00] VITALS: BP 108/71
[2020-06-02] MEDS: MEGESTROL ACETATE 400 MG/10 ML UDC PO SCH ×2 (08:51→17:00)
[2020-06-02] MEDS: NYSTATIN POWDER 15GM TOP SCH ×2 (08:51→21:24)
[2020-06-02 12:00] VITALS: BP 101/53
[2020-06-02] MEDS: SODIUM CHLORIDE 23.4% 154 MEQ in DEXT 10% WATER 1,000 ML IV SCH ×2 (12:19→22:11)
[2020-06-02 13:59] LABS: PLATELET ESTIMATE DECREASED
[2020-06-02 16:00] VITALS: BP 96/53
[2020-06-02 20:37] VITALS: BP 107/54
[2020-06-02] MEDS: PANTOPRAZOLE SODIUM 40 MG/VIAL IV SCH (21:23)
[2020-06-02] MEDS ORDERED: MORPHINE SULFATE 2 MG/ML CPJ (NOT FOR IM USE) IV PRN (23:00)
[2020-06-03 00:49] VITALS: BP 107/51
[2020-06-03] MEDS: IPRATROPIUM/ALBUTEROL 0.5-3(2.5)MG/3ML NEB HHN SCH ×4 (01:12→20:36)
[2020-06-03 04:00] VITALS: BP 106/58
[2020-06-03] MEDS: BLOOD SUGAR DIAGNOSTIC STRIP TEST SCH ×4 (06:26→20:35)
[2020-06-03 06:40] LABS: HEMATOCRIT. 26.9 % (42.0-52.0); MEAN CORPUSCULAR VOLUME 86.5 fL (80.0-94.0); MEAN PLATELET VOLUME 7.3 fl (7.4-10.4); PLATELET 87 x1000/uL (130-400); RED CELL DISTRIBUTION WIDTH 17.3 % (11.6-14.6)
[2020-06-03 06:43] LABS: INR 1.4; PARTIAL THROMBOPLASTIN TIME 39.6 sec (23.4-31.0); PROTHROMBIN TIME 14.4 sec (9.6-11.0)
[2020-06-03 06:58] LABS: CHLORIDE 113 mEq/L (98-107)
[2020-06-03 07:14] LABS: PHOSPHORUS 4.8 mg/dL (2.5-4.9)
[2020-06-03 07:17] LABS: CREATINE KINASE 936 IU/L (39-308)
[2020-06-03 08:41] VITALS: BP 107/50
[2020-06-03] MEDS: MEGESTROL ACETATE 400 MG/10 ML UDC PO SCH ×2 (09:00→16:11)
[2020-06-03] MEDS: LEVOTHYROXINE SODIUM 100 MCG/ VIAL IV SCH (09:11)
[2020-06-03] MEDS: NYSTATIN POWDER 15GM TOP SCH (09:11)
[2020-06-03] MEDS: PANTOPRAZOLE SODIUM 40 MG/VIAL IV SCH ×2 (09:11→20:28)
[2020-06-03] MEDS ORDERED: DEXT IV ONE (10:00)
[2020-06-03] MEDS ORDERED: DEXTROSE 50% IV ONE (10:00)
[2020-06-03] MEDS ORDERED: WATER IV ONE (10:00)
[2020-06-03] MEDS ORDERED: LIDOCAINE HCL 1% 20ML VIAL (Pyxis) INJ ONE (10:11)
[2020-06-03] MEDS ORDERED: CEFAZOLIN 1000MG PREMIX 50 ML IV NR (12:00)
[2020-06-03 12:36] VITALS: BP 100/53
[2020-06-03] MEDS: DEXTROSE 50% WATER 50ML SYRINGE IV PRN ×2 (12:52→20:35)
[2020-06-03 14:35] LABS: PLATELET ESTIMATE DECREASED
[2020-06-03] MEDS ORDERED: FENTANYL CITRATE/PF 50MCG/ML 2ML VIAL ONE (14:46)
[2020-06-03] MEDS ORDERED: MIDAZOLAM HCL 5 MG/5 ML VIAL ONE (14:46)
[2020-06-03] MEDS ORDERED: MIDAZOLAM HCL 5 MG/5 ML VIAL IV PRN (14:56)
[2020-06-03 17:43] VITALS: BP 100/53
[2020-06-03 20:00] VITALS: BP 102/43
[2020-06-04] VITALS (59 sets, daily range): BP systolic 56–180; BP diastolic 31–126
[2020-06-04] MEDS: IPRATROPIUM/ALBUTEROL 0.5-3(2.5)MG/3ML NEB HHN SCH ×4 (02:12→20:35)
[2020-06-04] MEDS: DEXTROSE 50% WATER 50ML SYRINGE IV PRN ×2 (05:48→11:14)
[2020-06-04] MEDS: BLOOD SUGAR DIAGNOSTIC STRIP TEST SCH ×4 (05:48→21:27)
[2020-06-04 08:33] LABS: HEMATOCRIT. 31.1 % (42.0-52.0); HEMOGLOBIN. 10.3 g/dL (14.0-18.0); MEAN CORPUSCULAR HEMOGLOBIN 28.9 pg (28.0-32.0); MEAN CORPUSCULAR VOLUME 87.7 fL (80.0-94.0); MEAN PLATELET VOLUME 7.7 fl (7.4-10.4); PLATELET 77 x1000/uL (130-400); RED BLOOD CELL COUNT 3.55 mill/uL (4.7-6.1); RED CELL DISTRIBUTION WIDTH 17.8 % (11.6-14.6)
[2020-06-04 08:39] LABS: BG BASE EXCESS -5.2 mmol/L (-2.0-2.0); BG CARBOXYHEMOGLOBIN 0.3 % (0.5-1.5); BG DEOXYHEMOGLOBIN 20.9 % (0.0-5.0); BG FRACTION INSPIRED OXYGEN 36; BG HCO3 ACT 21.6 mmol/L (22.0-26.0); BG METHEMOGLOBIN 0.4 % (0.0-1.5); BG OXYHEMOGLOBIN 78.4 % (94.0-97.0); BG PCO2 48.3 mmHg (35.0-45.0); BG PH 7.269 (7.350-7.450); BG PO2 51.9 mmHg (75.0-100.0); BG SAMPLE SITE RIGHT RADIAL; BG TOTAL HEMOGLOBIN 9.9 g/dL (12.0-18.0); BG VENT MODE NASAL CANNULA
[2020-06-04 08:45] LABS: CHLORIDE 111 mEq/L (98-107)
[2020-06-04 08:51] LABS: PHOSPHORUS 5.4 mg/dL (2.5-4.9)
[2020-06-04] MEDS: LEVOTHYROXINE SODIUM 100 MCG/ VIAL IV SCH (09:23)
[2020-06-04] MEDS: PANTOPRAZOLE SODIUM 40 MG/VIAL IV SCH ×2 (09:23→21:35)
[2020-06-04] MEDS: MEGESTROL ACETATE 400 MG/10 ML UDC PO SCH ×2 (09:23→17:29)
[2020-06-04] MEDS: WATER IV SCH (09:24)
[2020-06-04] MEDS: DEXT IV SCH (09:24)
[2020-06-04] MEDS: DEXTROSE 50% IV SCH (09:24)
[2020-06-04] MEDS ORDERED: FUROSEMIDE 40MG/4ML VIAL IVP NR (10:00)
[2020-06-04 12:46] LABS: BG BASE EXCESS -8.1 mmol/L (-2.0-2.0); BG BILEVEL POS AIRWAY PRESSURE 15/5; BG CARBOXYHEMOGLOBIN 0.1 % (0.5-1.5); BG FRACTION INSPIRED OXYGEN 100; BG HCO3 ACT 19.2 mmol/L (22.0-26.0); BG METHEMOGLOBIN 0.3 % (0.0-1.5); BG OXYHEMOGLOBIN 97.6 % (94.0-97.0); BG PCO2 47.4 mmHg (35.0-45.0); BG PH 7.225 (7.350-7.450); BG PO2 145.7 mmHg (75.0-100.0); BG SAMPLE SITE RIGHT RADIAL; BG TOTAL HEMOGLOBIN 9.5 g/dL (12.0-18.0); BG VENT MODE MASK - BIPAP; BG VENT RATE 16 set
[2020-06-04 14:15] LABS: PLATELET ESTIMATE DECREASED
[2020-06-04] MEDS ORDERED: ETOMIDATE 2MG/ML 10ML VIAL IV ONE (15:04)
[2020-06-04] MEDS ORDERED: SODIUM CHLORIDE 0.9% 10ML VIAL ONE (15:04)
[2020-06-04] MEDS ORDERED: VECURONIUM BROMIDE 10 MG/VIAL IV ONE (15:04)
[2020-06-04] MEDS ORDERED: DOPAMINE 800MG PREMIX (DOUBLE) 250 ML IV ONE (15:18)
[2020-06-04 15:52] LABS: BG BASE EXCESS -6.5 mmol/L (-2.0-2.0); BG CARBOXYHEMOGLOBIN 0.3 % (0.5-1.5); BG DEOXYHEMOGLOBIN 2.3 % (0.0-5.0); BG FRACTION INSPIRED OXYGEN 100; BG HCO3 ACT 20.6 mmol/L (22.0-26.0); BG METHEMOGLOBIN 0.2 % (0.0-1.5); BG OXYGEN SATURATION 97.7 % (92.0-98.5); BG OXYHEMOGLOBIN 97.2 % (94.0-97.0); BG PCO2 48.6 mmHg (35.0-45.0); BG PH 7.245 (7.350-7.450); BG SAMPLE SITE RIGHT RADIAL; BG TIDAL VOLUME(mL) 450 mL; BG TOTAL HEMOGLOBIN 9.3 g/dL (12.0-18.0); BG VENT MODE VENT - A/C; BG VENT RATE 20 set
[2020-06-04] MEDS ORDERED: FENTANYL CITRATE/PF 1,000 MCG in SODIUM CHLORIDE 0.9% 80 ML IV PRN (16:00)
[2020-06-04] MEDS ORDERED: MIDAZOLAM HCL 100 MG in DEXT 5% WATER 80 ML IV PRN (16:00)
[2020-06-04] MEDS ORDERED: SODIUM CHLORIDE 0.9% 1,000 ML IV ONE (16:00)
[2020-06-04] MEDS: DOPAMINE 800MG PREMIX (DOUBLE) 250 ML IV PRN (16:37)
[2020-06-04] MEDS: ACETYLCYSTEINE 100MG/ML 10% VIAL 4ML INH SCH (16:42)
[2020-06-04] MEDS: NOREPINEPHRINE 32 MG in DEXT 5% WATER 218 ML IV PRN (17:36)
[2020-06-05] VITALS (79 sets, daily range): BP systolic 62–111; BP diastolic 25–98
[2020-06-05] MEDS: ACETYLCYSTEINE 100MG/ML 10% VIAL 4ML INH SCH ×3 (00:33→14:01)
[2020-06-05] MEDS: WATER IV SCH ×2 (03:39→22:56)
[2020-06-05] MEDS: DEXT IV SCH ×2 (03:39→22:56)
[2020-06-05] MEDS: DEXTROSE 50% IV SCH ×2 (03:39→22:56)
[2020-06-05] MEDS: IPRATROPIUM/ALBUTEROL 0.5-3(2.5)MG/3ML NEB HHN SCH ×4 (04:15→21:17)
[2020-06-05 06:16] LABS: CHLORIDE 112 mEq/L (98-107)
[2020-06-05 06:22] LABS: PHOSPHORUS 5.4 mg/dL (2.5-4.9)
[2020-06-05] MEDS: BLOOD SUGAR DIAGNOSTIC STRIP TEST SCH ×4 (06:23→21:00)
[2020-06-05 07:04] LABS: HEMATOCRIT. 37.3 % (42.0-52.0); MEAN CORPUSCULAR HEMOGLOBIN 28.6 pg (28.0-32.0); MEAN CORPUSCULAR VOLUME 88.7 fL (80.0-94.0); MEAN PLATELET VOLUME 7.8 fl (7.4-10.4); PLATELET 75 x1000/uL (130-400); RED CELL DISTRIBUTION WIDTH 18.2 % (11.6-14.6)
[2020-06-05] MEDS: NOREPINEPHRINE 32 MG in DEXT 5% WATER 218 ML IV PRN ×2 (07:53→17:45)
[2020-06-05 08:31] LABS: BG BASE EXCESS -8.4 mmol/L (-2.0-2.0); BG CARBOXYHEMOGLOBIN 0.8 % (0.5-1.5); BG DEOXYHEMOGLOBIN 5.5 % (0.0-5.0); BG HCO3 ACT 19.3 mmol/L (22.0-26.0); BG METHEMOGLOBIN 0.4 % (0.0-1.5); BG OXYGEN SATURATION 94.4 % (92.0-98.5); BG OXYHEMOGLOBIN 93.3 % (94.0-97.0); BG PCO2 48.3 mmHg (35.0-45.0); BG PH 7.219 (7.350-7.450); BG PO2 88.7 mmHg (75.0-100.0); BG SAMPLE SITE RIGHT RADIAL; BG TIDAL VOLUME(mL) 450 mL; BG TOTAL HEMOGLOBIN 12.2 g/dL (12.0-18.0); BG VENT MODE VENT - A/C; BG VENT RATE 24 set
[2020-06-05] MEDS: MEGESTROL ACETATE 400 MG/10 ML UDC PO SCH ×2 (09:49→17:44)
[2020-06-05] MEDS: PANTOPRAZOLE SODIUM 40 MG/VIAL IV SCH ×2 (09:49→21:38)
[2020-06-05] MEDS ORDERED: SODIUM BICARBONATE 8.4% 1 MEQ/ML 50ML SYR IV SCH (10:00)
[2020-06-05] MEDS ORDERED: SODIUM POLYSTYRENE SULFONATE 15 G/60 ML BOT GT SCH (11:00)
[2020-06-05] MEDS: CITRIC ACID/SODIUM CITRATE SOLN 30ML UDC GT SCH ×3 (11:23→17:44)
[2020-06-05] MEDS: DEXTROSE 50% WATER 50ML SYRINGE IV PRN (12:51)
[2020-06-05 13:06] LABS: C-PEPTIDE < 0.1 ng/mL (1.1-4.4); INSULIN < 0.4 uIU/mL (2.6-24.9)
[2020-06-05 14:12] LABS: PLATELET ESTIMATE DECREASED
[2020-06-05] MEDS: ASCORBIC ACID 500 MG TABLET NG SCH (14:51)
[2020-06-05] MEDS: FOLIC ACID 1MG TABLET NG SCH (14:51)
[2020-06-05] MEDS: THIAMINE HCL 100MG TABLET NG SCH (14:51)
[2020-06-05] MEDS: LEVOTHYROXINE SODIUM 100 MCG/ VIAL IV SCH (15:05)
[2020-06-05] MEDS: DOPAMINE 800MG PREMIX (DOUBLE) 250 ML IV PRN (17:52)
[2020-06-05 18:14] LABS: CHLORIDE 110 mEq/L (98-107)
[2020-06-05] MEDS ORDERED: SODIUM POLYSTYRENE SULFONATE 15 G/60 ML BOT PO ONE (18:45)
[2020-06-06] VITALS (80 sets, daily range): BP systolic 49–129; BP diastolic 28–76
[2020-06-06] MEDS: IPRATROPIUM/ALBUTEROL 0.5-3(2.5)MG/3ML NEB HHN SCH ×4 (00:54→20:57)
[2020-06-06] MEDS: ACETYLCYSTEINE 100MG/ML 10% VIAL 4ML INH SCH ×2 (00:55→08:50)
[2020-06-06] MEDS: NOREPINEPHRINE 32 MG in DEXT 5% WATER 218 ML IV PRN ×3 (02:32→17:30)
[2020-06-06] MEDS: BLOOD SUGAR DIAGNOSTIC STRIP TEST SCH (06:30)
[2020-06-06 06:31] LABS: HEMATOCRIT. 35.3 % (42.0-52.0); HEMOGLOBIN. 11.3 g/dL (14.0-18.0); MEAN CORPUSCULAR HEMOGLOBIN 28.4 pg (28.0-32.0); MEAN CORPUSCULAR VOLUME 88.9 fL (80.0-94.0); MEAN PLATELET VOLUME 7.6 fl (7.4-10.4); RED BLOOD CELL COUNT 3.97 mill/uL (4.7-6.1); RED CELL DISTRIBUTION WIDTH 18.1 % (11.6-14.6)
[2020-06-06 06:35] LABS: PLATELET 49 x1000/uL (130-400)
[2020-06-06 06:52] LABS: PHOSPHORUS 5.6 mg/dL (2.5-4.9)
[2020-06-06 07:11] LABS: HEPATITIS B SURFACE ANTIGEN NEGATIVE
[2020-06-06 07:40] LABS: HEPATITIS A AB IGM NEGATIVE (NEGATIVE)
[2020-06-06] MEDS: DOPAMINE 800MG PREMIX (DOUBLE) 250 ML IV PRN ×2 (08:18→15:27)
[2020-06-06] MEDS ORDERED: SODIUM BICARBONATE 8.4% 1 MEQ/ML 50ML SYR IV SCH (08:30)
[2020-06-06] MEDS ORDERED: SODIUM POLYSTYRENE SULFONATE 15 G/60 ML BOT NG SCH (09:00)
[2020-06-06 09:53] LABS: BG BASE EXCESS -9.4 mmol/L (-2.0-2.0); BG CARBOXYHEMOGLOBIN 0.3 % (0.5-1.5); BG DEOXYHEMOGLOBIN 5.3 % (0.0-5.0); BG HCO3 ACT 18.3 mmol/L (22.0-26.0); BG METHEMOGLOBIN 0.2 % (0.0-1.5); BG OXYGEN SATURATION 94.7 % (92.0-98.5); BG OXYHEMOGLOBIN 94.2 % (94.0-97.0); BG PCO2 47.5 mmHg (35.0-45.0); BG PH 7.203 (7.350-7.450); BG PO2 93.3 mmHg (75.0-100.0); BG SAMPLE SITE RIGHT RADIAL; BG TIDAL VOLUME(mL) 450 mL; BG TOTAL HEMOGLOBIN 10.4 g/dL (12.0-18.0); BG VENT MODE VENT - A/C; BG VENT RATE 24 set
[2020-06-06] MEDS: PHENYLEPHRINE 100 MG in DEXT 5% WATER 240 ML IV PRN (10:00)
[2020-06-06 10:01] LABS: PLATELET ESTIMATE MARKEDLY DECREASED
[2020-06-06] MEDS: CITRIC ACID/SODIUM CITRATE SOLN 30ML UDC GT SCH ×3 (10:26→17:00)
[2020-06-06] MEDS: PANTOPRAZOLE SODIUM 40 MG/VIAL IV SCH ×2 (10:27→21:00)
[2020-06-06] MEDS: ASCORBIC ACID 500 MG TABLET NG SCH (10:27)
[2020-06-06] MEDS: FOLIC ACID 1MG TABLET NG SCH (10:27)
[2020-06-06] MEDS: THIAMINE HCL 100MG TABLET NG SCH (10:28)
[2020-06-06] MEDS: LEVOTHYROXINE SODIUM 100 MCG/ VIAL IV SCH (10:31)
[2020-06-06] MEDS: MEGESTROL ACETATE 400 MG/10 ML UDC PO SCH ×2 (10:40→16:43)
[2020-06-06] MEDS: WATER IV SCH (15:33)
[2020-06-06] MEDS: DEXTROSE 50% IV SCH (15:33)
[2020-06-06] MEDS: METOCLOPRAMIDE HCL 10MG/2ML VIAL IV SCH ×2 (15:33→17:30)
[2020-06-06] MEDS: DEXT IV SCH (15:33)
[2020-06-07] VITALS (46 sets, daily range): BP systolic 80–121; BP diastolic 40–73
[2020-06-07] MEDS: DOPAMINE 800MG PREMIX (DOUBLE) 250 ML IV PRN (02:50)
[2020-06-07] MEDS: NOREPINEPHRINE 32 MG in DEXT 5% WATER 218 ML IV PRN ×2 (02:52→08:29)
[2020-06-07] MEDS: IPRATROPIUM/ALBUTEROL 0.5-3(2.5)MG/3ML NEB HHN SCH ×2 (03:05→08:42)
[2020-06-07] MEDS: ACETYLCYSTEINE 100MG/ML 10% VIAL 4ML INH SCH ×2 (03:05→08:42)
[2020-06-07 05:55] LABS: CHLORIDE 103 mEq/L (98-107)
[2020-06-07] MEDS: METOCLOPRAMIDE HCL 10MG/2ML VIAL IV SCH ×2 (06:00)
[2020-06-07 06:02] LABS: PHOSPHORUS 6.5 mg/dL (2.5-4.9)
[2020-06-07 06:12] LABS: HEMATOCRIT. 25.4 % (42.0-52.0); MEAN CORPUSCULAR HEMOGLOBIN 29.2 pg (28.0-32.0); MEAN CORPUSCULAR VOLUME 92.2 fL (80.0-94.0); MEAN PLATELET VOLUME 9.2 fl (7.4-10.4); RED BLOOD CELL COUNT 2.75 mill/uL (4.7-6.1); RED CELL DISTRIBUTION WIDTH 18.6 % (11.6-14.6)
[2020-06-07 06:50] LABS: PLATELET 17 x1000/uL (130-400)
[2020-06-07] MEDS: DEXT IV SCH (08:31)
[2020-06-07] MEDS: WATER IV SCH (08:31)
[2020-06-07] MEDS: DEXTROSE 50% IV SCH (08:31)
[2020-06-07 09:18] LABS: NUCLEATED RED BLOOD CELLS 3 /100 WBC
[2020-06-07 09:19] LABS: PLATELET ESTIMATE MARKEDLY DECREASED
[2020-06-07] MEDS ORDERED: SODIUM POLYSTYRENE SULFONATE 15 G/60 ML BOT NG SCH (09:30)
[2020-06-07] MEDS ORDERED: SODIUM BICARBONATE 8.4% 1 MEQ/ML 50ML SYR IV SCH (09:30)
[2020-06-07 14:08] LABS: PRO INSULIN 0.5 pmol/L (0.0-10.0)
== END 2020-06-07 12:18 | disposition expired | DRG 720 ==
LOC: ER 13:55 → 7WST 16:33 → ENRESERV 19:17 → 6WST 05-26 21:51 → 5EST 06-04 09:54 → MICUNO 06-04 14:43
PROVIDERS: ADMIT Internal Medicine; ATTEND Internal Medicine
PROC: 0DH63UZ Insertion of Feeding Device into Stomach, Percutaneous Approach (ICD-10-PCS; 2020-06-03)
PROC: 05HY33Z Insertion of Infusion Device into Upper Vein, Percutaneous Approach (ICD-10-PCS; 2020-06-03)
PROC: B54MZZA Ultrasonography of Right Upper Extremity Veins, Guidance (ICD-10-PCS; 2020-06-03)
PROC: 5A09357 Assistance with Respiratory Ventilation, Less than 24 Consecutive Hours, Continuous Positive Airway Pressure (ICD-10-PCS; 2020-06-04)
PROC: 5A12012 Performance of Cardiac Output, Single, Manual (ICD-10-PCS; 2020-06-04)
PROC: 5A1945Z Respiratory Ventilation, 24-96 Consecutive Hours (ICD-10-PCS; principal; 2020-06-05)
PROC: 0BH17EZ Insertion of Endotracheal Airway into Trachea, Via Natural or Artificial Opening (ICD-10-PCS; 2020-06-05)
DX: A41.9 Sepsis, unspecified organism (principal); G93.41 Metabolic encephalopathy; B18.2 Chronic viral hepatitis C; C61 Malignant neoplasm of prostate; E11.649 Type 2 diabetes mellitus with hypoglycemia without coma; F14.10 Cocaine abuse, uncomplicated; Z86.73 Personal history of transient ischemic attack (TIA), and cerebral infarction without residual deficits; E43 Unspecified severe protein-calorie malnutrition; E78.5 Hyperlipidemia, unspecified; E11.65 Type 2 diabetes mellitus with hyperglycemia; E87.70 Fluid overload, unspecified; E11.52 Type 2 diabetes mellitus with diabetic peripheral angiopathy with gangrene; D64.9 Anemia, unspecified; F14.129 Cocaine abuse with intoxication, unspecified; J90 Pleural effusion, not elsewhere classified; C78.00 Secondary malignant neoplasm of unspecified lung; C79.51 Secondary malignant neoplasm of bone; J44.0 Chronic obstructive pulmonary disease with (acute) lower respiratory infection; K25.9 Gastric ulcer, unspecified as acute or chronic, without hemorrhage or perforation; Z66 Do not resuscitate; Z51.5 Encounter for palliative care; D69.6 Thrombocytopenia, unspecified; E87.2 Acidosis; G93.1 Anoxic brain damage, not elsewhere classified; J98.11 Atelectasis; K29.70 Gastritis, unspecified, without bleeding; J18.1 Lobar pneumonia, unspecified organism; L98.429 Non-pressure chronic ulcer of back with unspecified severity; J96.21 Acute and chronic respiratory failure with hypoxia; R00.1 Bradycardia, unspecified; N17.0 Acute kidney failure with tubular necrosis; R65.21 Severe sepsis with septic shock; R13.10 Dysphagia, unspecified; I12.9 Hypertensive chronic kidney disease with stage 1 through stage 4 chronic kidney disease, or unspecified chronic kidney disease; R47.02 Dysphasia; E11.22 Type 2 diabetes mellitus with diabetic chronic kidney disease; N18.9 Chronic kidney disease, unspecified; I96 Gangrene, not elsewhere classified; Z20.828 Contact with and (suspected) exposure to other viral communicable diseases; Z80.9 Family history of malignant neoplasm, unspecified; Z82.49 Family history of ischemic heart disease and other diseases of the circulatory system; Z83.3 Family history of diabetes mellitus; Z87.11 Personal history of peptic ulcer disease; Z85.46 Personal history of malignant neoplasm of prostate; Z87.891 Personal history of nicotine dependence; Z68.24 Body mass index [BMI] 24.0-24.9, adult
CPT/HCPCS: 31500; 36415; 36600; 71045; 71260; 76705; 76770; 76937; 80048; 80053; 80305; 80320; 81003; 82247; 82375; 82533; 82550; 82805; 82947; 82962; 83036; 83525; 83605; 83735; 84075; 84100; 84134; 84153; 84206; 84443; 84450; 84460; 84484; 84681; 85025; 86705; 86709; 86803; 87340; 87635; 92610; 93005; 93923; 94002; 94003; 94640; 94660; 96365; 97110; 97162; 97165; 97530; 97535; 99291; C1725; C9113; J0690; J0696; J1265; J1650; J1940; J2250; J2270; J2765; J3010; J3490; J7030; J7042; J7050; J7060; J7131; J7608; Q9967; G0103; G0480